=== PATIENT | female | born 1965 | race Caucasian/White ===

== ENCOUNTER 2020-11-30 15:56 | Emergency (ER) | payer OTHER ==
[~2020-11-30] VITALS: Ht 172.7 cm; Wt 73.5 kg
[2020-11-30] MEDS ORDERED: SYNTHROID125 MCG (16:29)
== END 2020-11-30 18:36 | disposition home or self-care (01) ==
LOC: ER 15:56
DX: S90.31XA Contusion of right foot, initial encounter (principal); Y93.01 Activity, walking, marching and hiking; Y93.89 Activity, other specified; Y92.89 Other specified places as the place of occurrence of the external cause; Y99.8 Other external cause status